=== PATIENT | male | born 1960 | race Caucasian/White ===

== ENCOUNTER 2018-04-21 08:36 | Outpatient (CLI) | payer OTHER ==
[2018-04-21] MEDS ORDERED: LIDOCAINE 1%, 20 ML MDV 20 ML ONE (11:59)
[2018-04-21 14:10] LABS: CSF PROTEIN 68 mg/dL (15-45)
[2018-04-21 14:59] LABS: CSF APPEARANCE HAZY (CLEAR); CSF COLOR PINK (COLORLESS); CSF MONOCYTES 32 % (15-45); CSF NEUTROPHILS 68 % (0-6); CSF RED BLOOD CELL COUNT 1027 /uL (0-0); CSF TUBE NUMBER 3
[2018-04-21 15:19] LABS: CSF GLUCOSE 63 mg/dL (40-70)
[2018-04-25 10:02] LABS: CSF WHITE BLOOD CELL COUNT 12 /uL (0-5)
[2018-04-27 09:28] LABS: VDRL, CSF Non-Reactive
[2018-04-27 09:35] LABS: HSV 1/2 DNA PCR Negative
== END 2018-04-21 21:09 | disposition home or self-care (01) ==
LOC: SMI 08:36
PROVIDERS: ATTEND Internal Medicine Infectious Disease
DX: G04.90 Encephalitis and encephalomyelitis, unspecified (principal); Z79.01 Long term (current) use of anticoagulants; Z79.899 Other long term (current) drug therapy; R56.9 Unspecified convulsions
CPT/HCPCS: 36415; 62270; 70551; 82947; 84157; 85048; 86592; 86635; 87070; 87116; 87205; 87210; 87529 ×2; 87899; 89051; J2001

== ENCOUNTER 2018-08-15 10:35 | Outpatient (CLI) | payer OTHER ==
[2018-08-15] MEDS ORDERED: GADOPENTETATE DIMEGLUMINE 15 ML VIAL IV ONE (11:12)
== END 2018-08-15 20:51 | disposition home or self-care (01) ==
LOC: SMI 10:35
PROVIDERS: ATTEND Psychiatry & Neurology Neurology with Special Qualifications in Child Neurology
DX: G40.909 Epilepsy, unspecified, not intractable, without status epilepticus (principal)
CPT/HCPCS: 70553; A9579

== ENCOUNTER → 2018-10-24 | Outpatient (CLI) | payer OTHER | END | disposition home or self-care (01) | LOC: SMI 08:58 | PROVIDERS: ATTEND Psychiatry & Neurology Neurology with Special Qualifications in Child Neurology | DX: M47.816 Spondylosis without myelopathy or radiculopathy, lumbar region (principal); G40.909 Epilepsy, unspecified, not intractable, without status epilepticus | CPT/HCPCS: 72148 ==